=== PATIENT | male | born 2000 | race Caucasian/White ===

== ENCOUNTER 2018-04-14 20:03 | Emergency (ER) | payer SELFPAY ==
[~2018-04-14] VITALS: Ht 188 cm; Wt 79.5 kg
[~2018-04-14 20:03] MED LIST: ADDERALL15 MG PO
[2018-04-14 20:08] VITALS: BP 128/99; PULSE 97; TEMP 98.6
== END 2018-04-14 21:13 | disposition home or self-care (01) ==
LOC: COL.ER 20:03
DX: S05.01XA Injury of conjunctiva and corneal abrasion without foreign body, right eye, initial encounter (principal); Z77.098 Contact with and (suspected) exposure to other hazardous, chiefly nonmedicinal, chemicals
CPT/HCPCS: J7040